=== PATIENT | male | born 1965 | race Caucasian/White ===

== ENCOUNTER 2016-06-20 05:57 | Outpatient (CLI) | payer BC ==
[~2016-06-20] VITALS: Ht 180.3 cm; Wt 93.0 kg
== END 2016-06-20 13:35 ==
LOC: PREOP 05:57
PROVIDERS: ATTEND Surgery
DX: Z01.818 Encounter for other preprocedural examination (principal); Z12.11 Encounter for screening for malignant neoplasm of colon; Z80.0 Family history of malignant neoplasm of digestive organs

== ENCOUNTER 2016-06-24 09:14 | Day surgery (SDC) | payer BC ==
[~2016-06-24] VITALS: Ht 180.3 cm; Wt 93.0 kg
--- OUTSIDE RECORDS SUMMARY | 2016-06-24 09:15 | XMS REPORT | Continuity of Care Document ---
Author Author [facility] Organization [facility] Address Unknown Phone Unavailable Care Team Providers Care Residential Sales Rep Name Role Phone ROSALIO ONTIVEROS MD PCP Insurance Providers Payer Name Policy Number Subscriber Name Relationship [facility] [id number] Jamison Nieves 18 Self / Same As Patient Advance Directives Directive Response Recorded Date/Time Advance Directives No 06/20/16 1:31pm Health Care Power of Internet Sourcer No 06/20/16 1:31pm Organ Donor No 06/20/16 1:31pm Resuscitation Status Full Code 06/20/16 1:31pm Problems No problem information available. Medications No known medications. Social History Social History Problem Response Recorded Date/Time Alcohol Use Occasionally Uses 06/20/2016 1:31pm Recreational Drug Use No 06/20/2016 1:31pm Recent Foreign Travel No 06/20/2016 1:30pm Recent Infectious Disease Exposure No 06/20/2016 1:30pm Sexually Transmitted Disease No 06/20/2016 1:31pm HIV/AIDS No 06/20/2016 1:31pm Smoking Status Current Everyday Smoker 06/20/2016 1:31pm Type Used Cigarettes 06/20/2016 1:31pm Recent Hopitalizations No 06/20/2016 1:31pm Sexually Transmitted Disease No 06/20/2016 1:31pm Query Response Start Date Stop Date Smoking Status Current Everyday Smoker Hospital Discharge Instructions No hospital discharge instructions. Plan of Care Discharge Date 06/20/16 1:35pm Prescriptions See Medication Section Functional Status No functional status results. Allergies, Adverse Reactions, Alerts No known allergies. Immunizations No immunization records. Vital Signs Acute Vital Signs Vital Response Date/Time Height (Feet) 5 feet 06/20/2016 1:29pm Height (Inches) 11.00 inches 06/20/2016 1:29pm Height (Calculated Centimeters) 180.406238 cm 06/20/2016 1:29pm Weight (Pounds) 205 pounds 06/20/2016 1:29pm Weight (Ounces) 0.0 oz 06/20/2016 1:29pm Weight (Calculated Grams) 15886.44 gm 06/20/2016 1:29pm Weight (Calculated Kilograms) 92.281975 kilograms 06/20/2016 1:29pm Calculated BMI 28.6 06/20/2016 1:29pm Results No known relevant diagnostic tests, laboratory data and/or discharge summary. Procedures No known history of procedures. Encounters Encounter Location Arrival/Admit Date Discharge/Depart Date Attending Provider Registered Clinic [facility] 06/20/16 5:57am OLGA LANG MD
--- OUTSIDE RECORDS SUMMARY | 2016-06-24 09:18 | XMS REPORT | Continuity of Care Document ---
Author Author [facility] Organization [facility] Address Unknown Phone Unavailable Care Team Providers Care Perinatal Coordinator Name Role Phone ROSALIO ONTIVEROS MD PCP Insurance Providers Payer Name Policy Number Subscriber Name Relationship [facility] [id number] Jamison Nieves 18 Self / Same As Patient Advance Directives Directive Response Recorded Date/Time Advance Directives No 06/20/16 1:31pm Health Care Power of Coding Machine Operator No 06/20/16 1:31pm Organ Donor No 06/20/16 [...] 11.00 inches 06/20/2016 1:29pm Height (Calculated Centimeters) 180.963858 cm 06/20/2016 1:29pm Weight (Pounds) 205 pounds 06/20/2016 1:29pm Weight (Ounces) 0.0 oz 06/20/2016 1:29pm Weight (Calculated Grams) 41360.44 gm 06/20/2016 1:29pm Weight (Calculated Kilograms) 92.257862 kilograms 06/20/2016 1:29pm Calculated BMI 28.6 06/20/2016 1:29pm Results No known relevant diagnostic tests, laboratory data and/or discharge summary. Procedures No known history of procedures. Encounters Encounter Location Arrival/Admit Date Discharge/Depart Date Attending Provider Registered Clinic [facility] 06/20/16 5:57am OLGA LANG MD
[2016-06-24] MEDS ORDERED: NS IV 500 ML 500 ML IV ONE (09:45)
[2016-06-24] MEDS ORDERED: NALOXONE 0.4 MG/ML 1 ML (NARCAN) VIAL IVP PRN (09:45)
[2016-06-24] MEDS ORDERED: FLUMAZENIL (ROMAZICON) 0.1 MG/ML 5 ML VIAL INJ PRN (09:45)
[2016-06-24] MEDS ORDERED: NS IV 500 ML 500 ML ONE (09:51)
[2016-06-24 10:05] VITALS: BP 124/73
--- NOTE | 2016-06-24 10:14 | Pre-Op Note & Conscious Sedat ---
Pre-Operative Progress Note H&P Reviewed The H&P was reviewed, patient examined and no changes noted. Date H&P Reviewed: Jun 24, 2016 Time H&P Reviewed: 10:14 Pre-Op Diagnosis: screening Conscious Sedation Pre-Proced ASA Class: 2 Airway Mallampati Classification: ([place] appropriate class) I. II. III, IV Lungs Heart ASA score ASA 1: a normal healthy patient ASA 2: a patient with a mild systemic disease (mid diabetes, controlled hypertension, obesity ASA 3: a patient with a severe systemic disease that limits activity (angina , COPD, prior Myocardial infarction) ASA 4: a patient with an incapacitating disease that is a constant threat to life (CHF, renal failure) ASA 5: a moribund patient not expected to survive 24 hrs. (ruptured aneurysm) ASA 6: a declared brain patient whose organs are being harvested. For emergent operations, add the letter E after the classification Grade 1 Sedation Plan: Discussed options with patient/fam Note The patient is an appropriate candidate to undergo the planned procedure, sedation, and anesthesia. The patient immediately re-assessed prior to indication. OLGA LANG MD Jun 24, 2016 10:14 am
[2016-06-24] MEDS ORDERED: fentaNYL INJECTION 100 MCG/2 ML AMP ONE ×2 (10:27)
[2016-06-24] MEDS ORDERED: MIDAZOLAM 2 MG/2 ML (VERSED) VIAL ONE ×3 (10:27)
[2016-06-24] MEDS: fentaNYL INJECTION 100 MCG/2 ML AMP IVP PRN ×2 (10:30→10:50)
[2016-06-24] MEDS: MIDAZOLAM 2 MG/2 ML (VERSED) VIAL IVP PRN ×3 (10:33→10:55)
--- NOTE | 2016-06-24 11:17 | Progress Note-Post Operative ---
Post-Operative Progess Note Pre-Operative Diagnosis screening Post-Operative Diagnosis multiple polyps Post-Op Procedure Note Date of Procedure: Jun 24, 2016 Name of Procedure: colonoscopy to cecum Snare polypectomy Anesthesia Type sedation Specimen(s) collected colon polyps OLGA LANG MD Jun 24, 2016 11:17 am
--- NOTE | 2016-06-24 11:18 | Discharge Inst-Simple/Standard ---
Discharge Inst-Standard Discharge Medications New, Converted or Re-Newed RX: Other Patient Instructions/Follow Up Plan of Care/Instructions/FU: repeat colonoscopy in one year Activity as Tolerated: Yes Discharge Diet: No Restrictions OLGA LANG MD Jun 24, 2016 11:18 am
[2016-06-24 11:30] VITALS: BP 124/82
[2016-06-24 12:00] VITALS: BP 135/80
[2016-06-24 12:45] VITALS: BP 135/80
--- NOTE | 2016-06-24 12:54 | PROCEDURE REPORT ---
PROCEDURE PHYSICIAN: OLGA LANG DATE OF PROCEDURE: 06/24/2016 PROCEDURES: 1. Screening colonoscopy. 2. Snare polypectomy x5. SURGEON: Dr. Lang INDICATION FOR THE PROCEDURE: This gentleman reported a family history of colon cancer in his father. He came in for screening colonoscopy. Informed consent was obtained after reviewing the procedure in detail. DESCRIPTION OF PROCEDURE: He was placed in left lateral decubitus position and his vital signs were monitored. Conscious sedation was achieved using Versed and fentanyl. Examination of the perianal area revealed multiple skin tags. There was no fissure. Digital examination was unremarkable. The colonoscope was then introduced into the rectum and advanced to the cecum. The quality of bowel preparation was reasonable. The scope was then withdrawn slowly and the mucosa examined in a systematic fashion. FINDINGS: 1. A total of 2 polyps about 2 mm each in the distal rectum. These were snared and retrieved. 2. 3 mm polyp at the distal sigmoid colon, that was snared and retrieved. 3. 8 mm polyp at the distal descending colon that was snared and retrieved using a Wilcox net device. 4. 15 mm, pedunculated polyp at the proximal descending colon that was snared and retrieved using a Wilcox net device. 5. 3 mm polyp at the hepatic flexure that was snared and retrieved as well. He tolerated the procedure well and was taken back to the nursing area in a stable condition. IMPRESSION: 1. Family history of colon cancer. 2. Multiple polyps excised. 3. Recommend repeating in 1 year. Job ID: [id number] Dictated Date: 06/24/2016 11:16:20 Inspector Advanced Composite Date: 06/24/2016 12:51:30 / darlene HEART
== END 2016-06-24 12:45 | disposition home or self-care (01) ==
LOC: ENDO 09:14
PROVIDERS: ATTEND Surgery
DX: Z12.11 Encounter for screening for malignant neoplasm of colon (principal); K63.5 Polyp of colon; K62.1 Rectal polyp; D12.4 Benign neoplasm of descending colon; D12.5 Benign neoplasm of sigmoid colon; Z80.0 Family history of malignant neoplasm of digestive organs
CPT/HCPCS: 88305

== ENCOUNTER 2017-07-28 05:34 | Outpatient (CLI) | payer BC ==
[~2017-07-28] VITALS: Ht 180.3 cm; Wt 99.8 kg
[2017-07-28] MEDS ORDERED: ATOR10TA66 PO (11:40)
[2017-07-28] MEDS ORDERED: FENO145T20 PO (11:40)
== END 2017-07-28 10:50 ==
LOC: PREOP 05:34
PROVIDERS: ATTEND Surgery
DX: Z01.818 Encounter for other preprocedural examination (principal); Z86.010 Personal history of colon polyps; Z80.0 Family history of malignant neoplasm of digestive organs

== ENCOUNTER 2017-07-29 15:00 | Outpatient (CLI) | payer BC ==
[~2017-07-29 15:00] MED LIST: ATOR10TA66 PO; FENO145T20 PO
== END 2017-07-29 15:35 | disposition home or self-care (01) ==
LOC: SLEEP 15:00
PROVIDERS: ATTEND Family Medicine
DX: G47.33 Obstructive sleep apnea (adult) (pediatric) (principal); R06.83 Snoring

== ENCOUNTER 2017-08-04 08:22 | Day surgery (SDC) | payer BC ==
[~2017-08-04] VITALS: Ht 180.3 cm; Wt 99.8 kg
[2017-08-04] MEDS ORDERED: NS IV 500 ML 500 ML ONE (08:34)
[2017-08-04 08:40] VITALS: BP 128/88
[2017-08-04] MEDS ORDERED: NS IV 500 ML 500 ML IV PRN (08:51)
--- NOTE | 2017-08-04 09:13 | History & Physicial ---
History of Present Illness History of Present Illness Reason for visit/HPI to undergo surveillance colonoscopy Date of Admission 08/04/17 Date Seen by Provider: Aug 04, 2017 Time Seen by Provider: 09:11 I consulted on this patient on 08/04/17 09:11 Attending Physician Olga Lang MD Admitting Physician Chava Red MD Consult Allergies and Home Medications Allergies Coded Allergies: No Known Drug Allergies (Unverified , 07/28/17) Home Medications Atorvastatin Calcium 10 Mg Tablet, 10 MG PO DAILY, (Reported) Fenofibrate Nanocrystallized 145 Mg Tablet, 145 MG PO DAILY, (Reported) Patient Home Medication List Home Medication List Reviewed: Yes Past Cxlbsyc-Urnoaa-Zhpoqz Hx Patient Social History Marrital Status: Employed/Student: employed Type Used: Cigarettes Recent Foreign Travel: No Contact w/other who traveled: No Recent Hopitalizations: No Seasonal Allergies Seasonal Allergies: No Cardiovascular Yes High Cholesterol Reproductive System Hx Reproductive Disorders: No Sexually Transmitted Disease: No HIV/AIDS: No HEENT Loss of Vision: Denies Hearing Impairment: Denies Blood Transfusions Adverse Reaction to a Blood Tr: No (N/A) Constitutional: no symptoms reported EENTM: no symptoms reported Respiratory: no symptoms reported Cardiovascular: no symptoms reported Gastrointestinal: no symptoms reported Genitourinary: no symptoms reported Musculoskeletal: no symptoms reported Psychiatric/Neurological: No Symptoms Reported Physical Exam Vital Signs Capillary Refill : General Appearance: No Apparent Distress Neck: Normal Inspection Respiratory: Lungs Clear Cardiovascular: Regular Rate, Rhythm Gastrointestinal: Non Tender, Soft Rectal: Deferred Extremity: Normal Inspection Neurologic/Psychiatric: Alert, Oriented x3 Skin: Warm/Dry Assessment/Plan Assessment and Plan gentleman with a personal history of adenomatous polyps. For surveillance colonoscopy Problems: Admission Diagnosis Admission Status: Other (Outpt Proc) OLGA LANG MD Aug 04, 2017 9:13 am
--- NOTE | 2017-08-04 09:13 | Conscious Sedation/ASA ---
Conscious Sedation Pre-Proced Time Reviewed: 09:13 ASA Class: 2 Airway Mallampati Classification: ([place] appropriate class) I. II. III, IV Lungs Heart ASA score ASA 1: a normal healthy patient ASA 2: a patient with a mild systemic disease (mid diabetes, controlled hypertension, obesity ASA 3: a patient with a severe systemic disease that limits activity (angina , COPD, prior Myocardial infarction) ASA 4: a patient with an incapacitating disease that is a constant threat to life (CHF, renal failure) ASA 5: a moribund patient not expected to survive 24 hrs. (ruptured aneurysm) ASA 6: a declared brain patient whose organs are being harvested. For emergent operations, add the letter E after the classification Grade 1 Sedation Plan: Discussed options with patient/fam Note The patient is an appropriate candidate to undergo the planned procedure, sedation, and anesthesia. The patient immediately re-assessed prior to indication. OLGA LANG MD Aug 04, 2017 9:13 am
[2017-08-04] MEDS ORDERED: fentaNYL INJECTION 100 MCG/2 ML AMP ONE ×2 (09:41)
[2017-08-04] MEDS ORDERED: MIDAZOLAM 2 MG/2 ML (VERSED) VIAL ONE ×3 (09:41)
[2017-08-04] MEDS: fentaNYL INJECTION 100 MCG/2 ML AMP IVP PRN ×4 (09:45→10:15)
[2017-08-04] MEDS: MIDAZOLAM 2 MG/2 ML (VERSED) VIAL IVP PRN ×3 (09:47→09:56)
--- NOTE | 2017-08-04 10:26 | Endo Procedure Record ---
Endo Procedure Report Date of Procedure Last Colonoscopy: Yes (2016) Aug 04, 2017 Surgeon (s) OLGA LANG MD Post Procedure/Op Diagnosis 1.3 mm sessile polyp at the distal descending colon 2. 3 mm pedunculated polyp at the proximal descending colon Procedure Performed Colonoscopy to cecum Snare polypectomy 2 Tattooing of polypectomy site( distal descending colon area) Description of Procedure Anesthesia Type: Conscious Sedation Specimen(s) collected/removed polyps Description of the Procedure indication for the procedure: This gentleman, with a family history of colon cancer and a personal history of adenomatous polyps, return for surveillance colonoscopy. Informed consent was obtained after reviewing the procedure in detail. Description of the procedure: He was placed in left lateral rectus position and his vital signs were monitored. Conscious sedation was achieved using Versed and fentanyl. Examination of the perianal area revealed external hemorrhoids and skin tags. Digital rectal examination was unremarkable. The colonoscope was then introduced in the rectum and advanced all the way up to the cecum The scope was then withdrawn slowly and the mucosa examined in a systematic fashion. Findings: 1. 3 mm sessile polyp at the distal descending colon, snared and retrieved. The site was injected with Dipti ink for identification during future examination 2. 3 mm pedunculated polyp at the proximal descending colon that was snared and retrieved he tolerated the procedure well and was taken back to the nursing area in a stable condition. Impression: Personal history of polyps and family history of colon cancer. Polyps excised from the descending colon. Recommend repeating 2 years. Copies To: ROSALIO ONTIVEROS MD, XAVIER M MD Aug 04, 2017 10:26 am
--- NOTE | 2017-08-04 10:27 | Discharge Inst-Simple/Standard ---
Discharge Inst-Standard Discharge Medications New, Converted or Re-Newed RX: Other Patient Instructions/Follow Up Plan of Care/Instructions/FU: Repeat colonoscopy in 2 years Activity as Tolerated: Yes Discharge Diet: No Restrictions OLGA LANG MD Aug 04, 2017 10:27 am
[2017-08-04 10:40] VITALS: BP 141/91
[2017-08-04 11:10] VITALS: BP 137/93
[2017-08-04 11:25] VITALS: BP 137/93
== END 2017-08-04 11:25 | disposition home or self-care (01) ==
LOC: ENDO 08:22
PROVIDERS: ATTEND Surgery
DX: D12.4 Benign neoplasm of descending colon (principal); K63.5 Polyp of colon; Z80.0 Family history of malignant neoplasm of digestive organs; E78.00 Pure hypercholesterolemia, unspecified; F17.210 Nicotine dependence, cigarettes, uncomplicated; Z79.899 Other long term (current) drug therapy

== ENCOUNTER 2020-09-07 09:43 | Outpatient (CLI) | payer BC, OTHER ==
[~2020-09-07] VITALS: Ht 182.9 cm; Wt 105.8 kg
[~2020-09-07 09:43] MED LIST changes: -FENO145T20 PO; +FENO145T26 PO
== END 2020-09-07 14:38 | disposition home or self-care (01) ==
LOC: PREOP 09:43
PROVIDERS: ATTEND Internal Medicine
DX: Z01.818 Encounter for other preprocedural examination (principal)

== ENCOUNTER 2020-09-15 08:51 | Day surgery (SDC) | payer BC, OTHER ==
--- NOTE | 2020-09-07 11:06 | HISTORY AND PHYSICAL ---
DATE OF SERVICE: COLONOSCOPY SUMMARY REFERRING PHYSICIAN: Chava Red MD INDICATION FOR THE REFERRAL: Family history of colon cancer with personal history of colon polyps. HISTORY OF PRESENT ILLNESS: The patient is a 55-year-old white male referred by Dr. Red for surveillance colonoscopy. He reports he first underwent colonoscopy in 2017, at which time he had several polyps, several of which were reportedly large adenomas without dysplasia. Repeat colonoscopy in 1 year later revealed a couple of smaller polyps per his report. FAMILY HISTORY: Pertinent for father, who was diagnosed with colorectal carcinoma in his mid to late 70s. He has had at least one brother with colon polyps as well. He reports that he has had some rare episodes of bright red blood per rectum, he attributes to hemorrhoids, it has been over a year since this last occurred. He denies melena. He has had no bowel habit change. Denies abdominal pain. He denies any change in weight. FAMILY HISTORY: Other than his father, diagnosed with colorectal cancer in his mid to late 70s and a brother with polyps. He has had 2 brothers, who have passed; one secondary to lung cancer at age of 54 and was a heavy smoker, the other of sudden at the age of 64, thought to be blood clot related. He has 2 brothers who are alive and well. SOCIAL HISTORY: He has a 30+ pack year smoking history, smoking about a pack per day. Reports that he will drink a 12-pack at a time, usually just on the weekends, never more than 3 times a week, works installing heating and air units. PAST SURGICAL HISTORY: He has had surgery on his left third finger in the past and arthroscopy of his right knee. PAST MEDICAL HISTORY: Significant for hyperlipidemia and low testosterone level on replacements 2000 mg intramuscularly daily. REVIEW OF SYSTEMS: CONSTITUTIONAL: The patient denies night sweats, chills, fever, change in weight. GASTROINTESTINAL: As noted in the HPI. CARDIOVASCULAR: The patient denies chest pain, dyspnea on exertion, orthopnea, PND or pedal edema. PULMONARY: The patient reports mild cough, predominantly nonproductive with no dyspnea on exertion or chest pain and no wheezing. PHYSICAL EXAMINATION: GENERAL: Reveals a white male, appeared to be in no acute distress. VITAL SIGNS: Blood pressure 130/82. Weight 233. HEENT: Unremarkable. CHEST: Clear to auscultation. CARDIOVASCULAR: Reveals a regular rate and rhythm without murmur, S3 or S4. ABDOMEN: Soft, supple without mass, organomegaly or tenderness. EXTREMITIES: Reveal no cyanosis, clubbing or edema. ASSESSMENT AND PLAN: The patient is set up for screening colonoscopy on 09/15/2020. Prep instructions with the Suprep kit were given and questions were answered. I thank you for the referral of this pleasant gentleman. Job ID: [id number] DocumentID: [id number] Dictated Date: 09/07/2020 09:58:13 Bead Trimmer Date: 09/07/2020 11:05:45 Dictated By: RALPH RUDD MD
[~2020-09-15] VITALS: Ht 182.9 cm; Wt 105.8 kg
[2020-09-15] MEDS ORDERED: LACTATED RINGERS 1,000 ML IV ONE (09:01)
[2020-09-15] MEDS ORDERED: LACTATED RINGERS 1,000 ML IV STA (09:24)
[2020-09-15] MEDS ORDERED: LIDOCAINE JELLY 2% 6 ML SYRINGE MM PRN (09:30)
[2020-09-15 09:33] VITALS: BP 132/85
[2020-09-15] MEDS ORDERED: PROPOFOL INJECTION 50 ML IV ONE ×2 (09:42→10:04)
[2020-09-15] MEDS ORDERED: ONDANSETRON 4 MG/2 ML (SDV) Z0FRAN ONE (09:42)
[2020-09-15] MEDS ORDERED: MIDAZOLAM 2 MG/2 ML (VERSED) VIAL ONE (09:42)
[2020-09-15] MEDS ORDERED: LIDOCAINE JELLY 2% 6 ML SYRINGE ONE (09:45)
--- NOTE | 2020-09-15 09:53 | Pre-Op Note & Conscious Sedat ---
Pre-Operative Progress Note H&P Reviewed The H&P was reviewed, patient examined and no changes noted. Date H&P Reviewed: September 15, 2020 Time H&P Reviewed: 09:53 Conscious Sedation Pre-Proced ASA Score 2 For ASA 3 and 4: Consider anesthesia and medical clearance. Also, for patients with a history of failed moderate sedation consider anesthesia. Airway Lungs Heart ASA score ASA 1: a normal healthy patient ASA 2: a patient with a mild systemic disease (mid diabetes, controlled hypertension, obesity ASA 3: a patient with a severe systemic disease that limits activity (angina, COPD, prior Myocardial infarction) ASA 4: a patient with an incapacitating disease that is a constant threat to life (CHF, renal failure) ASA 5: a moribund patient not expected to survive 24 hrs. (ruptured aneurysm) ASA 6: a declared brain- patient whose organs are being harvested. For emergent operations, add the letter E after the classification Mallampati Classification Grade 2 Sedation Plan Analgesia, Amnesia, Plan communicated to team members, Discussed options with patient/fam, Discussed risks with patient/fam The patient is an appropriate candidate to undergo the planned procedure, sedation, and anesthesia. The patient immediately re-assessed prior to indication. RALPH RUDD MD September 15, 2020 09:53
[2020-09-15 10:30] VITALS: BP 146/85
[2020-09-15 10:35] VITALS: BP 159/84
[2020-09-15 10:50] VITALS: BP 156/96
[2020-09-15 11:09] VITALS: BP 156/96
--- NOTE | 2020-09-15 13:28 | Anesthesia-General Post-Op ---
MAC Patient Condition Mental Status/LOC: Same as Preop Cardiovascular: Satisfactory Nausea/Vomiting: Absent Respiratory: Satisfactory Pain: Controlled Complications: Absent Post Op Complications Complications None Follow Up Care/Instructions Patient Instructions None needed. Anesthesiology Discharge Order Discharge Order Patient is doing well, no complaints, stable vital signs, no apparent adverse anesthesia problems. No complications reported per nursing. HEIDI JARRELL CRNA September 15, 2020 13:28
--- NOTE | 2020-09-15 17:38 | OPERATIVE REPORT ---
DATE OF SERVICE: COLONOSCOPY SUMMARY INDICATION FOR THE PROCEDURE: Personal history of polyps, family history of colorectal cancer, index case being his father diagnosed the patient believes around 70. The patient was placed in the left lateral decubitus position. Prior to doing colonoscopy, digital rectal evaluation was performed. Anal sphincter tone was normal and the perianal reflexes intact. No abnormalities were noted on digital inspection of anal canal or distal rectal vault. The prostate was not palpable. The colonoscope was inserted into the rectum and under direct visualization advanced to cecum. The cecum was identified by identification of ileocecal valve and cecal strap. Photographic documentation was obtained. Careful inspection was made. Quality of prep was fair. FINDINGS: There was no evidence for internal or external hemorrhoids and the rectum was unremarkable. The patient has had several prominent perianal skin folds. Present in the distal sigmoid colon was a pedunculated adenomatous appearing polyp. It was snared and retrieved in its entirety and submitted for histopathology with no significant blood loss. Several small sigmoid diverticulum were present without evidence for diverticulitis. The remainder of the sigmoid colon was unremarkable. The descending colon, splenic flexure, transverse colon and hepatic flexure were unremarkable. Present in the proximal ascending colon was another 5 mm sessile adenomatous appearing polyp. It was biopsied and ablated and submitted for histopathology. The cecum was unremarkable. ASSESSMENT: Two adenomatous appearing polyps were removed, one from the distal sigmoid colon via snare and the other one via hot forceps from the proximal ascending colon. As long as there are no surprises on histopathology report, we will advocate repeat surveillance colonoscopy in one year. I thank you for the referral of this pleasant gentleman. Job ID: [id number] DocumentID: [id number] Dictated Date: 09/15/2020 11:17:43 Medical Practice Assistant Date: 09/15/2020 17:37:43 Dictated By: RALPH RUDD MD
== END 2020-09-15 11:10 | disposition home or self-care (01) ==
LOC: ENDO 08:51
PROVIDERS: ATTEND Internal Medicine
DX: Z12.11 Encounter for screening for malignant neoplasm of colon (principal); D12.2 Benign neoplasm of ascending colon; D12.5 Benign neoplasm of sigmoid colon; E78.5 Hyperlipidemia, unspecified; G47.33 Obstructive sleep apnea (adult) (pediatric); F17.210 Nicotine dependence, cigarettes, uncomplicated; Z99.89 Dependence on other enabling machines and devices; Z79.899 Other long term (current) drug therapy; Z80.0 Family history of malignant neoplasm of digestive organs; Z83.71 Family history of colonic polyps; Z80.1 Family history of malignant neoplasm of trachea, bronchus and lung
CPT/HCPCS: 88305

== ENCOUNTER 2021-09-26 10:38 | Outpatient (CLI) | payer OTHER ==
[~2021-09-26] VITALS: Ht 180.3 cm; Wt 107.6 kg
== END 2021-09-27 11:58 | disposition home or self-care (01) ==
LOC: PREOP 10:38
PROVIDERS: ATTEND Internal Medicine
DX: Z01.818 Encounter for other preprocedural examination (principal)

== ENCOUNTER 2021-10-05 09:59 | Day surgery (SDC) | payer OTHER ==
--- NOTE | 2021-09-27 08:15 | HISTORY AND PHYSICAL ---
DATE OF SERVICE: COLONOSCOPY HISTORY AND PHYSICAL DATE OF ADMISSION: ____. HISTORY OF PRESENT ILLNESS: The patient is a 56-year-old white male with a past history of colon polyps and a family history of her colon cancer, index case being his father diagnosed around the age of 70. He underwent his first colonoscopy a year ago and had two tubular adenomas removed, one from the distal sigmoid colon, one via snare from the proximal ascending colon. He is being set up for surveillance colonoscopy for this reason. He reports he had no difficulty with the procedure and there have been no changes in his health history. PAST MEDICAL HISTORY: Significant for hyperlipidemia with no known history of coronary artery disease. FAMILY HISTORY: Other than his father diagnosed with colon cancer in his early 70s, he has had one brother with colon polyps as well. REVIEW OF SYSTEMS: He does report some intermittent bright red blood per rectum that he has attributed to hemorrhoids. PHYSICAL EXAMINATION: GENERAL: Reveals a white male, appeared to be in no acute distress. VITAL SIGNS: Weight was up 3.4 pounds from one year ago. Blood pressure 132/84. CHEST: Clear. CARDIOVASCULAR: Reveals a regular rate and rhythm without S3 or S4, soft 1 to 2/6 systolic ejection murmur heard best at the second right intercostal space. There is no blunting of S2 on opening snap. No diastolic murmurs. ABDOMEN: Soft, supple without mass, organomegaly or tenderness. EXTREMITIES: Reveal no cyanosis, clubbing or edema. ASSESSMENT AND PLAN: The patient is being set up for surveillance colonoscopy due to past history of colon polyps. See HPI as well as a family history for colon cancer. Prep instructions with [employer] were given and questions answered. Job ID: [id number] DocumentID: [id number] Dictated Date: 09/26/2021 09:20:31 Easement Worker Date: 09/26/2021 10:25:26 Dictated By: RALPH RUDD MD
[~2021-10-05] VITALS: Ht 180.3 cm; Wt 107.6 kg
[2021-10-05] MEDS ORDERED: LACTATED RINGERS 1,000 ML IV STA (10:01)
[2021-10-05 10:15] VITALS: BP 128/78
--- NOTE | 2021-10-05 11:11 | Pre-Op Note & Conscious Sedat ---
Pre-Operative Progress Note H&P Reviewed The H&P was reviewed, patient examined and no changes noted. Date H&P Reviewed: Oct 05, 2021 Time H&P Reviewed: 11:11 Conscious Sedation Pre-Proced ASA Score 2 For ASA 3 and 4: Consider anesthesia and medical clearance. Also, for patients with a history of failed moderate sedation consider anesthesia. Airway Lungs Heart ASA score ASA 1: a normal healthy patient ASA 2: a patient with a mild systemic disease (mid diabetes, controlled hypertension, obesity ASA 3: a patient with a severe systemic disease that limits activity (angina, COPD, prior Myocardial infarction) ASA 4: a patient with an incapacitating disease that is a constant threat to life (CHF, renal failure) ASA 5: a moribund patient not expected to survive 24 hrs. (ruptured aneurysm) ASA 6: a declared brain- patient whose organs are being harvested. For emergent operations, add the letter E after the classification Mallampati Classification Grade 2 Sedation Plan Analgesia, Amnesia, Plan communicated to team members, Discussed options with patient/fam, Discussed risks with patient/fam The patient is an appropriate candidate to undergo the planned procedure, sedation, and anesthesia. The patient immediately re-assessed prior to indication. RALPH RUDD MD Oct 05, 2021 11:11
[2021-10-05] MEDS ORDERED: MIDAZOLAM 2 MG/2 ML (VERSED) VIAL ONE (11:30)
[2021-10-05] MEDS ORDERED: PROPOFOL INJECTION 50 ML IV ONE ×2 (11:30→11:48)
[2021-10-05 12:00] VITALS: BP 104/59
[2021-10-05 12:05] VITALS: BP 109/65
[2021-10-05 12:10] VITALS: BP 111/69
[2021-10-05 12:13] VITALS: BP 125/80
--- NOTE | 2021-10-05 12:24 | Anesthesia-General Post-Op ---
MAC Patient Condition Mental Status/LOC: Same as Preop Cardiovascular: Satisfactory Nausea/Vomiting: Absent Respiratory: Satisfactory Pain: Controlled Complications: Absent Post Op Complications Complications None Follow Up Care/Instructions Patient Instructions None needed. Anesthesiology Discharge Order Discharge Order Patient is doing well, no complaints, stable vital signs, no apparent adverse anesthesia problems. No complications reported per nursing. TESSA RAMIREZ CRNA Oct 05, 2021 12:24
[2021-10-05 12:25] VITALS: BP 134/87
--- NOTE | 2021-10-05 20:12 | OPERATIVE REPORT ---
DATE OF SERVICE: COLONOSCOPY SUMMARY INDICATION FOR THE PROCEDURE: Colon polyps, family history of colon cancer. The patient was placed in the left lateral decubitus position. Prior to undergoing colonoscopy, digital rectal evaluation was performed. The prostate is small with no nodularity being noted on digital inspection. No abnormalities were noted on digital inspection of anal canal or distal rectal vault. The colonoscope was then inserted into the rectum and under direct visualization advanced to cecum. Cecum was identified by identification of the ileocecal valve and cecal strap. Quality of prep was good. Careful inspection was made as colonoscope withdrawn. FINDINGS: There was no evidence for internal or external hemorrhoids and the rectum was unremarkable. Present in the distal sigmoid colon was beefy red sessile 6 mm polyp. No ulceration was noted. It was photographed and biopsied and ablated with no subsequent blood loss. Mild diverticular disease confined to the sigmoid colon was present without evidence for diverticulitis. The descending colon, splenic flexure were unremarkable. Diminutive 2 mm polyps were noted in the distal and proximal transverse colon. They were photographed, biopsied and ablated with no subsequent blood loss. The hepatic flexure, ascending colon and cecum were unremarkable with no evidence for previous large pedunculated polyp that had been removed from the proximal ascending colon. ASSESSMENT: Three polyps were removed today via hot forceps. As long as there are no surprises on histopathology report, we will advocate repeat surveillance colonoscopy in 3 years. Mild diverticular disease confined to the sigmoid colon was present without evidence for diverticulitis. Thank you for the referral of this pleasant gentleman. Job ID: [id number] DocumentID: [id number] Dictated Date: 10/05/2021 12:04:51 [employer] Date: 10/05/2021 20:12:17 Dictated By: RALPH RUDD MD [facility]
== END 2021-10-05 12:32 | disposition home or self-care (01) ==
LOC: ENDO 09:59
PROVIDERS: ATTEND Internal Medicine
DX: Z12.11 Encounter for screening for malignant neoplasm of colon (principal); D12.3 Benign neoplasm of transverse colon; K63.5 Polyp of colon; K57.30 Diverticulosis of large intestine without perforation or abscess without bleeding; Z80.0 Family history of malignant neoplasm of digestive organs

== ENCOUNTER → 2023-01-01 | Outpatient (CLI) | payer OTHER | LOC: CARD 13:00 | PROVIDERS: ATTEND Internal Medicine Cardiovascular Disease | DX: I51.7 Cardiomegaly (principal); I35.0 Nonrheumatic aortic (valve) stenosis | CPT/HCPCS: 93306 ==